=== PATIENT | female | born 1935 | race Two or more races ===

== ENCOUNTER 2016-12-02 14:33 | Emergency (ER) | payer MEDICARE, OTHER ==
[~2016-12-02] VITALS: Ht 170.2 cm; Wt 81.6 kg
[~2016-12-02 14:33] MED LIST: CEPHALEXIN500 MG ORAL
[2016-12-02] MEDS ORDERED: Fluorescein Strips ONE (14:59)
[2016-12-02] MEDS ORDERED: Tetracaine 0.5% Opth Soln LEFT EYE ONE (15:00)
--- NOTE | 2016-12-02 15:44 | Emergency Room Report ---
History of Present Illness General Chief Complaint: Eye Problems Source: Patient (ABISAI DOS SANTOS) Present Illness HPI 81 y/o female c/o FB sensation in right eye x 2 days. States she feels like there is a sensation of FB in her eye that is blocking her vision like a tree branch like figure in front of her. States she has no eye pain but would rate it 1/10 but more of an irritation. 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 There are no modifying factors and has no other physical complaints. Denies any eye discharge, vision loss, eye pain, contact lens use, PULIDO, neck pain, extremity weakness, facial droop, or remembering getting something stuck in her eye. (ABISAI DOS SANTOS) Allergies: Coded Allergies: No Known Allergies (Unverified , 05/13/16) Patient History Limited by: language barrier Past Medical History: see triage record Past Surgical History: other - cataracts Pertinent Family History: none Last Menstrual Period: na Reviewed Nursing Documentation: PMH: Agreed, PSxH: Agreed (ABISAI DOS SANTOS) Nursing Documentation-PMH Past Medical History: No History, Except For Hx Cardiac Problems: Yes - high cholesterol Hx Hypertension: Yes Hx Seizures: Yes (ABISAI DOS SANTOS) Review of Systems All Other Systems: negative except mentioned in HPI (ABISAI DOS SANTOS) Physical Exam Vital Signs Date Time Temp Pulse Resp B/P Pulse Ox O2 Delivery O2 Flow Rate FiO2 12/02/16 14:40 98.2 68 18 138/61 98 Room Air Sp02 EP Interpretation: reviewed, normal General Appearance: no apparent distress, alert, GCS 15, non-toxic Head: normocephalic, atraumatic Eyes: right eye fluoroscene uptake - foreign body has uptake in right eye, consistent with a piece of string (fabric), right eye other - IOP 12, bilateral eye EOMI, bilateral eye Fundiscopic - normal, bilateral eye PERRL, bilateral eye normal inspection ENT: normal ENT inspection Neck: normal inspection Cardiovascular #1: regular rate, rhythm Neurologic: alert, oriented x3, responsive, motor strength/tone normal, sensory intact, speech normal Psychiatric: judgement/insight normal, memory normal, mood/affect normal, no suicidal/homicidal ideation Skin: normal color, no rash, warm/dry, well hydrated (ABISAI DOS SANTOS P.AMatteo) Procedures Eye Procedure Eye Procedure : Consent: Verbal Alcaine Drops Administered: Yes Eye FB Removal: removal w/ cotton swab Eye Irrigated w/ Saline (ccs): 500 Patient Tolerated: Well Complications: None (ABISAI DOS SANTOS.AMatteo) Medical Decision Making PA Attestation Dr. Morris my supervising physician with whom patient management has been discussed with. (ABISAI DOS SANTOS) Medicare Attestation The history of Meredith Ugarte has been reviewed and management options for her have been examined and discussed by Ritesh Morris. I have personally examined and interviewed the patient. (RITESH MORRIS M.D.) Diagnostic Impression: Primary Impression: Foreign body of right eye Qualified Codes: T15.91XA - Foreign body on external eye, part unspecified, right eye, initial encounter ER Course Pt. presents to the ED c/o blurred vision Ddx considered but are not limited to glaucoma, corneal abrasion, bacterial conjunctivitis, allergic conjunctivitis, viral conjunctivitis, CVA, ophthalmic thrombosis retinal detachment Vital signs: are WNL, pt. is afebrile H&PE are most consistent with foreign body of eye ORDERS: Mendoza lamp with fluorescein, ocular pressure with karthik-pen ED INTERVENTIONS: Tetracaine 2 ggts, eye irrigation DISCHARGE: At this time pt. is stable for d/c to home. Patient states she is asymptomatic after removal of FB. Will provide printed patient care instructions , and any necessary prescriptions. Care plan and follow up instructions have been discussed with the patient prior to discharge. (ABISAI DOS SANTOS P.A.) Last Vital Signs Date Time Temp Pulse Resp B/P Pulse Ox O2 Delivery O2 Flow Rate FiO2 12/02/16 14:40 98.2 68 18 138/61 98 Room Air Status: improved Reevaluation Impression Patient has no more visual complaints. States she has normal vision after FB removal w/o any eye pain or FB sensation. (ABISAI DOS SANTOS P.A.) Disposition: HOME, SELF-CARE Condition: Improved Referrals: RASHI NY M.D. (PCP) Patient Instructions: Eye Foreign Body Additional Instructions: Advised if you think you have something in your eye, you can try to remove it. But be careful not to irritate your eye. You can also pull your upper eyelid over your lower eyelid to try to brush away the object, such as an eye lash. Do not rub or press on it. Blink a few times to see if you can remove anything that might be in your eye. If that doesnt work, rinse your eye with water once or twice. But rinsing more than a few times can make the problem worse. Patient is to go to ER right away if you have the symptoms above and your eye still hurts a lot after youve tried rinsing it or if you have any vision changes. While waiting to see the doctor, you might feel better if you sit quietly in a darkened room with your eyes closed. ABISAI DOS SANTOS Dec 02, 2016 15:44 RITESH MORRIS M.D. Dec 04, 2016 13:57
[2016-12-02 15:55] VITALS: BP 142/62
[2016-12-02 15:56] VITALS: BP 138/61
== END 2016-12-02 15:57 | disposition home or self-care (01) ==
LOC: EMR 15:09
DX: T15.91XA Foreign body on external eye, part unspecified, right eye, initial encounter (principal); X58.XXXA Exposure to other specified factors, initial encounter; Y93.9 Activity, unspecified; Y92.9 Unspecified place or not applicable; I10 Essential (primary) hypertension
CPT/HCPCS: 65205; 99283

== ENCOUNTER 2016-12-28 11:46 | Emergency (ER) | payer MEDICARE ==
[~2016-12-28] VITALS: Ht 170.2 cm; Wt 81.6 kg
[2016-12-28 12:02] VITALS: BP 149/67
[2016-12-28] MEDS ORDERED: TYLENOL EXTRA500 MG ORAL (12:12)
[2016-12-28] MEDS ORDERED: CEPHALEXIN500 MG ORAL (12:12)
[2016-12-28] MEDS ORDERED: BACITRACIN15 GM TOPIC (12:12)
[2016-12-28] MEDS ORDERED: BACTRIM DS TAB1 EAC1 ORAL (12:12)
[2016-12-28] MEDS ORDERED: Bacitracin Oint UD TOPIC ONE (12:15)
[2016-12-28 12:21] VITALS: BP 149/67
--- NOTE | 2016-12-28 12:27 | Emergency Room Report ---
History of Present Illness General Chief Complaint: Skin Rash/Abscess Source: Patient Present Illness HPI The patient is an 81-year-old female with a history of diabetes presenting for toe pain and discoloration. The patient states that she injured her toe 1 week prior. Pain is now an 8/10 dull ache it is worse with walking. Pain does not radiate. She denies any bleeding or discharge from the area. She has not tried any pain medications. She states that she is compliant with her diabetic medication. She denies any other symptoms including fever, chills, numbness or tingling, chest pain, shortness of breath Allergies: Coded Allergies: No Known Allergies (Unverified , 05/13/16) Patient History Past Medical History: see triage record Pertinent Family History: none Now: No Reviewed Nursing Documentation: PMH: Agreed, PSxH: Agreed Nursing Documentation-PMH Hx Cardiac Problems: Yes - high cholesterol Hx Hypertension: Yes Hx Seizures: Yes Review of Systems All Other Systems: negative except mentioned in HPI Physical Exam Vital Signs Date Time Temp Pulse Resp B/P Pulse Ox O2 Delivery O2 Flow Rate FiO2 12/28/16 11:54 98.1 60 15 149/67 97 Room Air Sp02 EP Interpretation: reviewed, normal General Appearance: no apparent distress, alert, GCS 15, non-toxic Head: normocephalic, atraumatic Eyes: bilateral eye PERRL, bilateral eye normal inspection ENT: hearing grossly normal, normal pharynx, no angioedema, normal voice Musculoskeletal: no calf tenderness, inflammation, swelling, tender - TTP over the plantar surface of the distal R 3rd toe Neurologic: alert, oriented x3, responsive, motor strength/tone normal, sensory intact, speech normal Psychiatric: judgement/insight normal, memory normal, mood/affect normal, no suicidal/homicidal ideation Skin: rash - There is a small superficial wound of the plantar surface of the R 3rd toe with surrounding erythema Lymphatic: no adenopathy Medical Decision Making PA Attestation Dr. Mckeon is my supervising physician. Patient management was discussed with my supervising physician Diagnostic Impression: Primary Impression: Cellulitis Qualified Codes: L03.031 - Cellulitis of right toe ER Course The patient is an 81-year-old female with a history of diabetes presenting for for pain Differential diagnoses considered but not limited to: Cellulitis, gangrene, necrosis, paronychia, felon, among others Physical exam: Afebrile. No apparent distress. Right foot: There is a less than 1 cm lesion of the plantar surface of the right third toe with surrounding erythema. No discharge or bleeding. Tender to palpation. Sensation is intact. Full active range of motion Bacitracin and sterile dressing applied. The patient will be discharged home with prescription for Keflex, Bactrim, and Tylenol. To followup with primary doctor soon as possible. ER precautions given Last Vital Signs Date Time Temp Pulse Resp B/P Pulse Ox O2 Delivery O2 Flow Rate FiO2 12/28/16 12:02 98.1 60 15 149/67 97 Room Air Status: improved Disposition: HOME, SELF-CARE Condition: Improved Scripts Bacitracin (Bacitracin) 28.4 Gm Oint...g. 1 APPLIC TOPIC THREE TIMES A DAY, #28 GM Prov: KEY EDMOND P.A. 12/28/16 Trimethoprim/Sulfamethoxazole 160/800* (BACTRIM DS TABLET*) 1 Each Tablet 1 TAB ORAL TWICE A DAY, #14 TAB Prov: KEY EDMOND P.A. 12/28/16 Cephalexin* (KEFLEX*) 500 Mg Capsule 500 MG ORAL EVERY 12 HOURS, #14 CAP 0 Refills Prov: TERZIANKEY P.A. 12/28/16 Acetaminophen* (TYLENOL EXTRA STRENGTH*) 500 Mg Tablet 500 MG ORAL Q8H Y for Prn Headache/Temp > 101, #30 TAB 0 Refills Prov: DEEPIKAANKEY P.A. 12/28/16 Patient Instructions: Diabetes and Foot Care, Cellulitis Additional Instructions: I discussed my findings with the patient. All questions and concerns have been answered. Treatment and medication compliance have been addressed. I advised the patient that they need to follow up with PMD in 3-5 days. Return to ED if symptoms worsen, new symptoms arise, or if needed for any reason. Patient verbalized understanding of discharge instructions. KEY EDMOND Dec 28, 2016 12:27
== END 2016-12-28 12:21 | disposition home or self-care (01) ==
LOC: EMR 12:05
DX: L03.031 Cellulitis of right toe (principal); I10 Essential (primary) hypertension
CPT/HCPCS: 99284

== ENCOUNTER 2018-10-30 11:37 | Inpatient (IN) | payer MEDICARE ==
[~2018-10-30] VITALS: Ht 170.2 cm; Wt 83.5 kg
[2018-10-30] VITALS (7 sets, daily range): BP systolic 163–221; BP diastolic 54–146
[~2018-10-30 11:37] MED LIST changes: +BACITRACIN15 GM TOPIC; +BACTRIM DS TAB1 EAC1 ORAL; +TYLENOL EXTRA500 MG ORAL
--- NOTE | 2018-10-30 11:46 | NUR ---
Note undone in EDM - 10/30/18 at 1153 by ALEXIS ED Nurse Note: PT WALKED IN TO ER TODAY FROM HOME. AOX4. PT C/O LEFT SHOULDER AND FACE PAIN, 02/05, AFTER FALL X THIS AM AROUND 0800. PT STATES SHE LANDED ON HER LEFT SHOULDER AND LEFT SIDE OF FACE BUT DENIES LOC. PT STATES SHE IS TAKING ASPIRIN DAILY BUT IS UNSURE OF DOSAGE. PT PRESENTS WITH SWELLING AROUND LEFT ORBIT. PT HAS LIMITED ROM OF LEFT UPPER EXTREMITY BUT SENSATION AND CIRCULATION INTACT, CAP REFILL <3 SECONDS, 5/5 MUSCLE STRENGTH OF HAND, STRONG RADIAL PULSE, AND SKIN CLEAN, DRY, AND INTACT.
--- NOTE | 2018-10-30 11:46 | NUR ---
ED Nurse Note: PT WALKED IN TO ER TODAY FROM HOME. AOX4. PT C/O LEFT SHOULDER AND FACE PAIN, 02/05, AFTER FALL X THIS AM AROUND 0800. PT STATES SHE LANDED ON HER LEFT SHOULDER AND LEFT SIDE OF FACE BUT DENIES LOC. PT STATES SHE IS TAKING ASPIRIN DAILY BUT IS UNSURE OF DOSAGE. PT DENIES DIZZINESS, NAUSEA, OR VOMITING. PT PRESENTS WITH SWELLING AROUND LEFT ORBIT. PT HAS LIMITED ROM OF LEFT UPPER EXTREMITY BUT SENSATION AND CIRCULATION INTACT, CAP REFILL <3 SECONDS, 5/5 MUSCLE STRENGTH OF HAND, STRONG RADIAL PULSE, AND SKIN CLEAN, DRY, AND INTACT.
--- NOTE | 2018-10-30 11:58 | NUR ---
ED Nurse Note: RADIOLOGY CALLED FOR CT.
--- NOTE | 2018-10-30 12:08 | NUR ---
ED Nurse Note: PT TO CT VIA CHERRY.
[2018-10-30 12:17] LABS: BASOPHILS % (AUTO) 0.6 % (0.0-2.0); EOSINOPHILS % (AUTO) 1.7 % (0.0-3.0); HEMATOCRIT 29.8 % (37.0-47.0); HEMOGLOBIN 9.7 G/DL (12.0-16.0); LYMPHOCYTES % (AUTO) 12.4 % (20.0-45.0); MEAN CORPUSCULAR VOLUME 92 FL (80-99); MONOCYTES % (AUTO) 3.8 % (1.0-10.0); NEUTROPHILS % (AUTO) 81.5 % (45.0-75.0); PLATELET COUNT 247 K/UL (150-450); RED BLOOD COUNT 3.25 M/UL (4.20-5.40); RED CELL DISTRIBUTION WIDTH 11.4 % (11.6-14.8); WHITE BLOOD COUNT 8.4 K/UL (4.8-10.8)
--- NOTE | 2018-10-30 12:24 | NUR ---
ED Nurse Note: PT BACK FROM CT VIA [facility]ERR[facility].
[2018-10-30 12:27] LABS: ANION GAP 7 mmol/L (5-15); BLOOD UREA NITROGEN 50 mg/dL (7-18); CARBON DIOXIDE 28 MMOL/L (21-32); CHLORIDE 104 MMOL/L (98-107); CREATININE 2.8 MG/DL (0.55-1.30); POTASSIUM 4.9 MMOL/L (3.5-5.1); SODIUM 139 MMOL/L (136-145)
--- NOTE | 2018-10-30 12:28 | Diagnostic Imaging Report ---
ADDENDUM - Added by Devante Raphael M.D. on 10/30/2018 12:30 PM (-07:00) INDICATION: Trauma TECHNIQUE: Multiple, contiguous 2.5 mm axial cuts of the brain are obtained from the posterior fossa to the cranial vault. Sagittal and coronal reformatted images provided. No IV contrast is administered. One or more of the following dose reduction techniques were used: automated exposure control, adjustment of the mA and/or kV according to patient size, use of iterative reconstruction technique. COMPARISON: None FINDINGS: No intracranial hemorrhage, abnormal intra- or extra-axial collections or parenchymal lesions are seen. There are involutional changes with prominence of the sulci, basal cisterns and ventricles. Scattered white matter hypoattenuations are present, likely from small vessel disease. The vargas-white differentiation is preserved. No evidence of mass effect, midline shift, or edema. The osseous structures are unremarkable. The visualized portions of the paranasal sinuses are clear. Left periorbital soft tissue swelling. IMPRESSION: 1. No acute intracranial process. 2. Involutional changes with small vessel disease. 3. Left periorbital soft tissue swelling. CTDI: 70.38 mGy DLP: 1344.19 mGycm INDICATION: Trauma TECHNIQUE: Multiple, contiguous 2.5 mm axial cuts of the brain are obtained from the posterior fossa to the cranial vault. Sagittal and coronal reformatted images provided. No IV contrast is administered. One or more of the following dose reduction techniques were used: automated exposure control, adjustment of the mA and/or kV according to patient size, use of iterative reconstruction technique. COMPARISON: None FINDINGS: No intracranial hemorrhage, abnormal intra- or extra-axial collections or parenchymal lesions are seen. There are involutional changes with prominence of the sulci, basal cisterns and ventricles. Scattered white matter hypoattenuations are present, likely from small vessel disease. The vargas-white differentiation is preserved. No evidence of mass effect, midline shift, or edema. The osseous structures are unremarkable. The visualized portions of the paranasal sinuses are clear.
[2018-10-30 12:41] LABS: ALANINE AMINOTRANSFERASE 18 U/L (12-78); ALBUMIN 2.7 G/DL (3.4-5.0); ALBUMIN/GLOBULIN RATIO 0.6 (1.0-2.7); ALKALINE PHOSPHATASE 148 U/L (46-116); ASPARTATE AMINO TRANSFERASE 16 U/L (15-37); BILIRUBIN,TOTAL 0.2 MG/DL (0.2-1.0); CREATINE KINASE 141 U/L (26-308)
--- NOTE | 2018-10-30 12:42 | Diagnostic Imaging Report ---
INDICATION: Trauma TECHNIQUE: Multiple, contiguous 2.5 mm axial cuts of the paranasal sinuses are obtained. Sagittal and coronal reformatted images are provided. No IV contrast is administered. COMPARISON: None FINDINGS: Fracture of the left orbital floor with 3-4 mm of depression. Left periorbital soft tissue swelling. Left premaxillary soft tissue swelling. The ethmoid, sphenoid and frontal sinuses are clear bilaterally. There is no mucoperiosteal thickening or air-fluid levels. The osteomeatal units are well aerated bilaterally. The turbinates are normal. The nasal septum is midline. No bony erosions are seen. Blood is seen within the left maxillary sinus. Atherosclerotic vascular disease. Status post bilateral lens surgery. IMPRESSION: 1. Fracture of the left orbital floor with 3-4 mm of depression. Left periorbital soft tissue swelling. Left premaxillary soft tissue swelling. 2. Blood is seen within the left maxillary sinus. CTDI: 28.19 mGy DLP: 570.88 mGycm
--- NOTE | 2018-10-30 12:45 | NUR ---
ED Nurse Note: PT'S BP REMAINS ELEVATED. DR DICKSON NOTIFIED.
--- NOTE | 2018-10-30 13:54 | Diagnostic Imaging Report ---
INDICATION: Chest pain COMPARISON: Chest x-ray dated 05/13/16 FINDINGS: Single frontal view demonstrates a prominent heart size. Left chest wall pacemaker leads in place. Aortic stent atherosclerotic vascular disease. The lungs are clear. No pleural effusions. The visualized osseous structures are within normal limits. IMPRESSION: Prominent cardiac size with left chest wall pacemaker. Aortic stent. Lungs are clear.
--- NOTE | 2018-10-30 13:54 | Emergency Room Report ---
History of Present Illness General Chief Complaint: Multiple Trauma/Fall Source: Patient, Family Member, Medical Record (Pat Sy DO) Present Illness HPI Patient presents with reports of fall and trauma She reports that she was walking down the stairs at [employer] had a misstep falling forward patient has pain to the left side of her face Denies any headache Has diffuse bodyaches including bilateral shoulders Denies any chest pain or shortness of breath Denies any visual change Denies any recent fevers or chills (Pat Sy DO) Allergies: Coded Allergies: No Known Allergies (Unverified , 05/13/16) Patient History Past Medical History: see triage record Pertinent Family History: none Now: No Reviewed Nursing Documentation: PMH: Agreed; PSxH: Agreed (Pat Sy DO) Nursing Documentation-PMH Past Medical History: No History, Except For Hx Cardiac Problems: Yes - high cholesterol Hx Hypertension: Yes Hx Seizures: Yes (Pat Sy DO) Review of Systems All Other Systems: negative except mentioned in HPI (Pat Sy DO) Physical Exam Vital Signs Date Time Temp Pulse Resp B/P (MAP) Pulse Ox O2 Delivery O2 Flow Rate FiO2 10/30/18 11:42 97.0 84 18 97 Room Air 10/30/18 11:50 189/54 Sp02 EP Interpretation: reviewed, normal General Appearance: no apparent distress Head: other - Facial trauma involving the left facial orbital area and upper cheek, obvious ecchymosis no obvious laceration Eyes: bilateral eye PERRL, bilateral eye EOMI, bilateral eye other - No obvious entrapment ENT: hearing grossly normal, normal pharynx, TMs + canals normal, uvula midline Neck: full range of motion, supple, no meningismus, no bony tend Respiratory: lungs clear, normal breath sounds, no rhonchi, no respiratory distress, no retraction, no accessory muscle use Cardiovascular #1: normal peripheral pulses, regular rate, rhythm, no edema, no gallop, no JVD, no murmur Gastrointestinal: normal bowel sounds, non tender, soft, no mass, no organomegaly, non-distended, no guarding, no hernia, no pulsatile mass, no rebound Genitourinary: no CVA tenderness Musculoskeletal: normal inspection Neurologic: oriented x3, responsive, 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 operator III-XII nml as tested, motor strength/ tone normal, sensory intact Psychiatric: mood/affect normal Skin: other - Ecchymosis and swelling left orbital facial area and upper cheek Lymphatic: normal inspection, no adenopathy (Pat Sy DO) Medical Decision Making Diagnostic Impression: Primary Impression: Multiple injuries due to trauma Additional Impressions: Renal insufficiency Hyperglycemia Fracture of orbital floor Qualified Codes: S02.32XA - Fracture of orbital floor, left side, initial encounter for closed fracture Hypertension Qualified Codes: I10 - Essential (primary) hypertension ER Course Patient presents initially with fairly mechanical-type description of fall however given the severity of the facial trauma and the patient's comorbidities extensive blood work was obtained revealing elevated glucose levels patient's kidney function also appears to be worsening CT head does not show any acute disease however the CT facial does reveal orbital wall fracture there is some evidence of depression On clinical exam patient does not have any signs of entrapment Patient requires further inpatient care Labs Test 10/30/18 12:05 White Blood Count 8.4 K/UL (4.8-10.8) Red Blood Count 3.25 M/UL (4.20-5.40) Hemoglobin 9.7 G/DL (12.0-16.0) Hematocrit 29.8 % (37.0-47.0) Mean Corpuscular Volume 92 FL (80-99) Mean Corpuscular Hemoglobin 30.0 PG (27.0-31.0) Mean Corpuscular Hemoglobin Concent 32.7 G/DL (32.0-36.0) Red Cell Distribution Width 11.4 % (11.6-14.8) Platelet Count 247 K/UL (150-450) Mean Platelet Volume 6.8 FL (6.5-10.1) Neutrophils (%) (Auto) 81.5 % (45.0-75.0) Lymphocytes (%) (Auto) 12.4 % (20.0-45.0) Monocytes (%) (Auto) 3.8 % (1.0-10.0) Eosinophils (%) (Auto) 1.7 % (0.0-3.0) Basophils (%) (Auto) 0.6 % (0.0-2.0) Sodium Level 139 MMOL/L (136-145) Potassium Level 4.9 MMOL/L (3.5-5.1) Chloride Level 104 MMOL/L (98-107) Carbon Dioxide Level 28 MMOL/L (21-32) Anion Gap 7 mmol/L (5-15) Blood Urea Nitrogen 50 mg/dL (7-18) Creatinine 2.8 MG/DL (0.55-1.30) Estimat Glomerular Filtration Rate mL/min (>60) Glucose Level 348 MG/DL (74-106) Calcium Level 8.0 MG/DL (8.5-10.1) Total Bilirubin 0.2 MG/DL (0.2-1.0) Aspartate Amino Transf (AST/SGOT) 16 U/L (15-37) Alanine Aminotransferase (ALT/SGPT) 18 U/L (12-78) Alkaline Phosphatase 148 U/L (46-116) Total Creatine Kinase 141 U/L (26-308) Creatine Kinase MB 2.0 NG/ML (0.0-3.6) Creatine Kinase MB Relative Index 1.4 Troponin I 0.041 ng/mL (0.000-0.056) Total Protein 7.0 G/DL (6.4-8.2) Albumin 2.7 G/DL (3.4-5.0) Globulin 4.3 g/dL Albumin/Globulin Ratio 0.6 (1.0-2.7) (Pat Sy DO) ER Course Discussed with Dr. Tang. Admit med. Antibiotics ordered. HTN continues out of control. Hydralazine repeat. Patient c/o pain. Morphine ordered. (Destin Cantrell MD) Rhythm Strip Diag. Results EP Interpretation: yes Rate: 80 Rhythm: NSR, no PVC's, no ectopy (Pat Sy DO) CT/MRI/US Diagnostic Results CT/MRI/US Diagnostic Results : Impression CT headIMPRESSION: 1. No acute intracranial process. 2. Involutional changes with small vessel disease. 3. Left periorbital soft tissue swelling. facial CTIMPRESSION: 1. Fracture of the left orbital floor with 3-4 mm of depression. Left periorbital soft tissue swelling. Left premaxillary soft tissue swelling. 2. Blood is seen within the left maxillary sinus. (Pat Sy DO) Last Vital Signs Date Time Temp Pulse Resp B/P (MAP) Pulse Ox O2 Delivery O2 Flow Rate FiO2 10/30/18 11:50 72 14 Room Air 10/30/18 11:50 97.2 189/54 99 Status: improved (Pat Sy DO) Status: improved (Destin Cantrell MD) Disposition: ADMITTED INPATIENT Condition: Serious Referrals: Destin Simon MD (PCP) Pat Sy DO October 30, 2018 13:54 Destin Cantrell MD October 30, 2018 18:47
[2018-10-30 15:56] LABS: INR 0.9 (0.9-1.1)
--- NOTE | 2018-10-30 17:00 | NUR ---
ED Nurse Note: MEAL TRAY PROVIDED FOR PT.
--- NOTE | 2018-10-30 17:45 | NUR ---
ED Nurse Note: ORLANDO OCONNELL: [phone]
[2018-10-30] MEDS ORDERED: ceFAZolin 1gm/50ml Premix 50 ML IV ONE (19:00)
--- NOTE | 2018-10-30 19:08 | NUR ---
ED Nurse Note: REPORT GIVEN TO KEVIN FREGOSO.
--- NOTE | 2018-10-30 19:20 | NUR ---
ED Nurse Note: RECIEVED REPORT TO RESUME CARE, PT IN BED AWAKE, ALERT AND ORIENTED X 4, PT IS WAITING TO GO TO FLOOR BED FOR ADMISSION, PT HAS PATENT SALINE LOCK IN RIGHT AC, PT HAS C/O PAIN IN LEFT SHOULDER AND FACE WITH SEVERE LEFT EYE BRUISING S/P FALL, PT ALSO NOTED WITH ELEVATED B/P, MD INFORMED, WILL RESUME CARE ORDRED, CARRY OUT NEW ORDERS, AND SEND TO FLOOR BED WHEN B/P DECREASES.
--- NOTE | 2018-10-30 20:15 | NUR ---
ED Nurse Note: Pt medicated for levated b/p, denies cp but does ask for pain meds for shoulder and face, pt also assisted to bedside commode, tolerated well, will continue to monitor for medication effectiveness and send to floor bd for admission.
[2018-10-30] MEDS ORDERED: Morphine Sulfate 4mg/ml Inj (IV USE ONLY) IVP ONE (20:30)
--- NOTE | 2018-10-30 21:00 | NUR ---
ED Nurse Note: PT MEDICATED FOR PAIN AND B/P, MEDS EFFECTIVE, PAIN LEVEL DECREASED TO 3/10, PT B/P=163/84, PT BEING SENT TO FLOOR BED FOR ADMISSION, BELONGING LIST COMPLETED AND SPOKE WITH PT NEPHEW AND INFORMED OF PT ADMISSION AND ROOM.
--- NOTE | 2018-10-30 21:15 | NUR ---
ED Nurse Note: placed call to floor unit for report, was informed by lan that pepe quintana will call back, she is in room busy, will wait for return call for report and admission.
--- NOTE | 2018-10-30 21:45 | NUR ---
ED Nurse Note: Placed second call for report to mariano, informed by lan now that natalie is nurse and he forgot to tell him, report given to natalie, pt in bed awake and alert, iv site patent, v/s stable, pt being taken to floor bed via gurney with er-tech and acls protocols.
--- NOTE | 2018-10-30 22:35 | NUR ---
NURSE NOTES: Received pt from ER, KEVIN Evans. Pt is awake and resting in no acute distress. Tolerating room air. nuclear monitoring technician leads applied on pt and vitals taken. Oriented pt to room and floor. IV site intact. Contacted Dr. Tang for admission orders. Bed in lowest position call light within reach.
[2018-10-31] VITALS: BP 190/61
--- NOTE | 2018-10-31 01:20 | NUR ---
NURSE NOTES: Spoke to Dr. Tang for admission orders and notified him about pt's elevated BP. Dr. Tang gave no orders and said he will see the pt in the morning.
[2018-10-31 04:00] VITALS: BP 145/76
--- NOTE | 2018-10-31 07:49 | NUR ---
HAND-OFF: Report given to KEVIN Majano. Endorsed plan of care.
--- NOTE | 2018-10-31 07:50 | NUR ---
NURSE NOTES: Received report from Gianluca BROWN. AOx4. Pt in bed awake. Welsh speaking but speaks some congolese. No c/o pain. No signs of distress noted. Bed in lowest position and locked. IV in RAC 20G SL. Will continue to monitor with plan of care.
[2018-10-31 09:03] VITALS: BP 179/76
[2018-10-31] MEDS ORDERED: Hydromorphone 0.5mg/0.5ml inj IVP PRN (09:15)
[2018-10-31 09:42] LABS: ANION GAP 3 mmol/L (5-15); BLOOD UREA NITROGEN 45 mg/dL (7-18); CALCIUM 7.7 MG/DL (8.5-10.1); CARBON DIOXIDE 31 MMOL/L (21-32); CHLORIDE 106 MMOL/L (98-107); CREATININE 2.8 MG/DL (0.55-1.30); POTASSIUM 4.5 MMOL/L (3.5-5.1); SODIUM 140 MMOL/L (136-145)
[2018-10-31] MEDS ORDERED: CARVEDILOL25 MG ORAL (11:46)
[2018-10-31] MEDS ORDERED: VITAMIN D35000 UNI2 PO (11:49)
[2018-10-31 12:00] VITALS: BP 172/70
[2018-10-31] MEDS ORDERED: PLAVIX75 MG ORAL (12:00)
[2018-10-31] MEDS ORDERED: LIPITOR80 MG ORAL (12:00)
[2018-10-31] MEDS ORDERED: ASPIR 8181 MG ORAL (12:00)
[2018-10-31] MEDS ORDERED: NIFEDIPINE ER90 M2 ORAL (12:02)
[2018-10-31] MEDS ORDERED: VITAMIN D250000 UNI1 ORAL (12:02)
[2018-10-31] MEDS ORDERED: FUROSEMIDE40 MG ORAL (12:04)
[2018-10-31] MEDS ORDERED: FAMOTIDINE20 MG ORAL (12:04)
[2018-10-31] MEDS ORDERED: TRADJENTA5 MG PO (12:07)
[2018-10-31] MEDS ORDERED: LANTUS SOL100 UNIT/1 SUBQ (12:07)
[2018-10-31] MEDS: NovoLOG Insulin Flexpen SUBQ SCH ×3 (12:29→20:47)
[2018-10-31] MEDS ORDERED: Carvedilol 25mg Tab ORAL SCH (13:35)
--- NOTE | 2018-10-31 13:52 | NUR ---
CASE MANAGEMENT: REVIEW 83Y/F PRESENTED TO ED FROM HOME CC: FALL SI: RENAL INSUFFICIENCY . S/P GROUND FALL . FRACTURE OF ORBITAL FLOOR T 97.5 HR 92 RR 15 BP 221/146 AST 98% ROOM AIR H/H 9.7/29.8 BUN 50 CR 2.8 GLUCOSE 348 IS: HYDRALAZINE IV X1 CEFAZOLIN IV X1 MORPHINE IV X1 ZOFRAN IV X1 PATIENT ADMITTED TO TELEMETRY UNIT 10/30/2018 DCP: PATIENT IS FROM HOME
--- NOTE | 2018-10-31 14:00 | NUR ---
NURSE NOTES: Dr. Tang called for home meds reconciliation to be ready for review. Home meds ordered to resume at tele but d/c plavix and ASA held due to blood in Left premaxillary on heat CT. And heparin also d/c'd with the same reason. Per pharmacist, there is no Lantus (from home meds) available, it is changed to Levemir 8U qhs but Tradjenta in not available with any other form. family will bring the home meds tomorrow. Per pharmacist, tradjenta should be ordered tomorrow when the med is available.
--- NOTE | 2018-10-31 15:30 | Consultation ---
DATE OF CONSULTATION: 10/31/2018 CONSULTING PHYSICIAN: Yogesh Cesar M.D. REFERRING PHYSICIAN: Dionicio Tang M.D. REASON FOR CONSULTATION: 1. Acute kidney injury. 2. CKD, stage 4. HISTORY OF PRESENT ILLNESS: The patient is an 83-year-old female who was admitted overnight for further evaluation and care after multiple falls and trauma. Her creatinine currently is 2.8. 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 Her creatinine was 1.6 over two years ago. Unclear of the degradation of renal function over these two years whether or not the creatinine of 2.8 was new or old. She is unclear on that issue. She was admitted for further evaluation and care due to multiple falls and severity of the facial trauma, which showed orbital wall fracture with some evidence of depression. She denies any current chest pain, shortness of breath, nausea, vomiting, or diarrhea. PAST MEDICAL HISTORY: 1. Hyperglycemia. 2. CKD stage 4. PAST SURGICAL HISTORY: Noncontributory. ALLERGIES: No known drug allergies FAMILY HISTORY: Positive for hypertension and diabetes. REVIEW OF SYSTEMS: NEUROLOGIC: The patient denies headache, change in vision, syncope, or presyncopal episodes. CARDIOVASCULAR: No current chest pain, palpitations, or angina. PULMONARY: No difficulty breathing, cough, or productive sputum. GASTROINTESTINAL/GENITOURINARY: No change in urinary or bowel habits. No nausea, vomiting, or diarrhea. ENDOCRINOLOGY: No night sweats, fevers, or chills. PHYSICAL EXAMINATION: VITAL SIGNS: Blood pressure 145/76, respiratory rate 20, pulse 74, and temperature 99.3. GENERAL: The patient is awake and alert, in no overt distress. HEENT: Extraocular muscles intact. No lymphadenopathy noted. Oropharyngeal mucosa is clear and dry. CARDIOVASCULAR: S1, S2. No rubs or gallops. PULMONARY: Clear to auscultation bilaterally. No rales, rhonchi or wheezes. ABDOMEN: Nondistended and nontender. EXTREMITIES: No edema. LABORATORY DATA: Labs dated 10/30/2018, white cell count 8.4, hemoglobin 9.7, and platelet count 247. Sodium 139, creatinine 2.8, and BUN 50. Troponin 0.041. INR is 0.9. ASSESSMENT AND PLAN: 1. Acute kidney injury on chronic kidney disease, stage 4. The patient's creatinine was 1.6 over two years ago. At this time, we will avoid any nephrotoxins and start gentle hydration. We will repeat a.m. blood work and follow renal function carefully. 2. Hypertension. We will initiate Norvasc. 3. Facial orbital fracture. Defer to ENT and primary care physician. 4. Hyperglycemia. We will start insulin sliding scale and a diabetic diet. Yogesh Cesar MD DR: MIKEY JOB#: [id number] CC:
[2018-10-31 15:54] VITALS: BP 129/55
--- NOTE | 2018-10-31 16:15 | History and Physical Report ---
DATE OF ADMISSION: 10/30/2018 HISTORY OF PRESENT ILLNESS: This is an 83 year female who reports having a mechanical fall yesterday. She states she was walking downstairs at [employer] when she missed a step and fell. She landed on her face on left side and left shoulder. She is complaining to me of facial pain, left shoulder pain, and right knee pain. She underwent imaging studies overnight, which were negative in terms of any significant fractures. In the chest, she is noted to have a permanent pacemaker. A facial bone CT was done, which showed a fracture of the left orbital floor with depression. Head CT was negative. The patient at this time states she is feeling well except for pain in the left side of the face. PAST MEDICAL HISTORY: Permanent pacemaker, hyperlipidemia, hypertension, history of seizure disorder. HOME MEDICATIONS: Include Coreg, Norvasc. REVIEW OF SYSTEMS: Denies any headaches, hematemesis, melena, or hematochezia. PHYSICAL EXAMINATION: GENERAL: Revealed an 83-year-old female. HEENT: Notable for left facial swelling plus ecchymosis under the left eye, which is unremarkable. ABDOMEN: Soft. EXTREMITIES: There is no edema. NEUROLOGIC: Nonfocal. LABORATORY DATA: Lab testing is notable for creatinine of 3.8, previously was 1.6. Glucose 348. Troponin is negative. Albumin 2.7. Hemoglobin 9.7. Coags are negative. IMPRESSION: 1. Hyperglycemia. 2. Hypertension. 3. Seizure disorder. 4. Hyperlipidemia. 5. Permanent pacemaker. 6. Status post fall. 7. Left orbital fracture. DISCUSSION: Admitted to the hospital. We will change diet to diabetic diet. Accu-Cheks and glucose monitoring. Request ENT evaluation. IV fluids per Nephrology for worsening renal failure. We will follow carefully. Dionicio Tang M.D. DR: DIOGENES JOB#: [id number] CC:
--- NOTE | 2018-10-31 19:49 | NUR ---
HAND-OFF: Report given to Gianluca BROWN. Pt remains stable.
--- NOTE | 2018-10-31 19:50 | NUR ---
NURSE NOTES: Received pt from KEVIN Guzman. Pt is awake and resting in stable condition. Tolerating room air and pt expressed she is currently not in any pain. IV site patent. Bed in lowest position and call light within reach. Will continue with plan of care.
[2018-10-31 20:00] VITALS: BP 142/107
[2018-10-31] MEDS: Carvedilol 25mg Tab ORAL SCH (20:58)
[2018-10-31] MEDS ORDERED: Heparin 5000 units/ml inj SUBQ SCH (21:00)
[2018-10-31] MEDS ORDERED: Levemir Flexpen SUBQ SCH (21:00)
[2018-10-31] MEDS ORDERED: Atorvastatin 80mg tab ORAL SCH (21:00)
[2018-11-01] VITALS: BP 144/90
[2018-11-01 04:00] VITALS: BP 126/65
[2018-11-01] MEDS: NovoLOG Insulin Flexpen SUBQ SCH ×2 (06:08→11:25)
[2018-11-01 06:26] LABS: BASOPHILS % (AUTO) 0.7 % (0.0-2.0); EOSINOPHILS % (AUTO) 1.9 % (0.0-3.0); HEMATOCRIT 26.1 % (37.0-47.0); HEMOGLOBIN 8.6 G/DL (12.0-16.0); MEAN CORPUSCULAR VOLUME 92 FL (80-99); MONOCYTES % (AUTO) 7.5 % (1.0-10.0); NEUTROPHILS % (AUTO) 74.9 % (45.0-75.0); PLATELET COUNT 242 K/UL (150-450); RED BLOOD COUNT 2.85 M/UL (4.20-5.40); RED CELL DISTRIBUTION WIDTH 11.9 % (11.6-14.8); WHITE BLOOD COUNT 9.5 K/UL (4.8-10.8)
[2018-11-01 06:44] LABS: ANION GAP 8 mmol/L (5-15); BLOOD UREA NITROGEN 47 mg/dL (7-18); CALCIUM 7.9 MG/DL (8.5-10.1); CARBON DIOXIDE 26 MMOL/L (21-32); CHLORIDE 110 MMOL/L (98-107); CHOLESTEROL 192 MG/DL (< 200); CREATININE 2.9 MG/DL (0.55-1.30); HDL CHOLESTEROL 47 MG/DL (40-60); POTASSIUM 3.5 MMOL/L (3.5-5.1); SODIUM 144 MMOL/L (136-145); TRIGLYCERIDES 143 MG/DL (30-150)
--- NOTE | 2018-11-01 07:05 | NUR ---
HAND-OFF: Report given to KEVIN Gonsalez. Endorsed plan of care.
--- NOTE | 2018-11-01 07:37 | NUR ---
NURSE NOTES: pt awake alert, no distress. no sob. no c/o pain. call light within reach.bed in lowest position locked. will monitor.
--- NOTE | 2018-11-01 07:47 | Nephrology Progress Note ---
Assessment/Plan Assessment/Plan: A/P 1) FLYNN on CKD 4- this may be her baseline 2.8-2.9 - IVFs - will need to f/u with her Community Health Counselor post DC 2) HTN- stable at goal - would avoid NAHUN-I for now 3) Post Mech Fall - facial orbital fx - nonsurgical 4) DM- insulin Subjective Date patient seen: November 01, 2018 Time patient seen: 07:44 ROS Limited/Unobtainable: No Allergies: Coded Allergies: No Known Allergies (Unverified , 05/13/16) All Systems: reviewed and negative except above Subjective Patient c/o of left shoulder pain Objective Last 24 Hour Vital Signs Date Time Temp Pulse Resp B/P (MAP) Pulse Ox O2 Delivery O2 Flow Rate FiO2 11/01/18 04:00 97.8 60 17 126/65 (85) 95 11/01/18 04:00 60 11/01/18 00:00 97.0 60 18 144/90 (108) 92 11/01/18 00:00 60 10/31/18 21:00 Room Air 10/31/18 20:58 69 136/54 10/31/18 20:00 74 10/31/18 20:00 97.1 74 18 142/107 (119) 92 10/31/18 16:47 97.9 10/31/18 16:00 67 10/31/18 15:54 97.9 64 18 129/55 (79) 95 10/31/18 13:51 70 172/70 10/31/18 13:51 70 172/70 10/31/18 12:00 98.2 70 18 172/70 (104) 95 10/31/18 12:00 77 10/31/18 09:40 104 179/76 10/31/18 09:40 104 179/76 10/31/18 09:03 99.5 104 18 179/76 (110) 95 10/31/18 09:00 Room Air 10/31/18 08:00 73 Intake and Output 10/31/18 11/01/18 19:00 07:00 Intake Total 360 ml Output Total 450 ml 0 ml Balance -90 ml 0 ml Intake Oral 360 ml Output Urine Total 450 ml 0 ml # Voids 1 Laboratory Tests 10/31/18 09:20: Sodium Level 140, Potassium Level 4.5, Chloride Level 106, Carbon Dioxide Level 31, Anion Gap 3L, Blood Urea Nitrogen 45H, Creatinine 2.8H, Estimat Glomerular Filtration Rate , Glucose Level 301H, Calcium Level 7.7L 11/01/18 05:20: Sodium Level 144, Potassium Level 3.5, Chloride Level 110H, Carbon Dioxide Level 26, Anion Gap 8, Blood Urea Nitrogen 47H, Creatinine 2.9H, Estimat Glomerular Filtration Rate , Glucose Level 94#, Calcium Level 7.9L, White Blood Count 9.5, Red Blood Count 2.85L, Hemoglobin 8.6L, Hematocrit 26.1L, Mean Corpuscular Volume 92, Mean Corpuscular Hemoglobin 30.1, Mean Corpuscular Hemoglobin Concent 32.9, Red Cell Distribution Width 11.9, Platelet Count 242, Mean Platelet Volume 6.8, Neutrophils (%) (Auto) 74.9, Lymphocytes (%) (Auto) 15.0L, Monocytes (%) (Auto) 7.5, Eosinophils (%) (Auto) 1.9, Basophils (%) (Auto ) 0.7, Hemoglobin A1c 9.3H, Triglycerides Level 143, Cholesterol Level 192, LDL Cholesterol 122H, HDL Cholesterol 47, Cholesterol/HDL Ratio 4.1 Height (Feet): 5 Height (Inches): 7.00 Weight (Pounds): 184 General Appearance: no apparent distress, alert EENT: normal ENT inspection Neck: normal alignment, supple Cardiovascular: normal rate, regular rhythm Respiratory/Chest: lungs clear, normal breath sounds Abdomen: non tender, soft Edema: no edema noted Arm (L), no edema noted Arm (R), no edema noted Leg (L), no edema noted Leg (R), no edema noted Pedal (L), no edema noted Pedal (R), no edema noted Generalized Yogesh Cesar MD November 01, 2018 07:47
[2018-11-01 07:49] VITALS: BP 150/70
--- NOTE | 2018-11-01 08:18 | NUR ---
NURSE NOTES: pt seen and examined by Dr Fermin per art model nurse report, pt family to bring keeley , relayed to Dr Tang re in person per md ok to continue, also received an order to stop ivf. order entered and carried out.
[2018-11-01] MEDS: Carvedilol 25mg Tab ORAL SCH (08:20)
--- NOTE | 2018-11-01 08:20 | Pulmonology Progress Note ---
Assessment/Plan Assessment/Plan IMPRESSION: 1. Hyperglycemia. 2. Hypertension. 3. Seizure disorder. 4. Hyperlipidemia. 5. Permanent pacemaker. 6. Status post fall. 7. Left orbital fracture. DISCUSSION: Admitted to the hospital. I will change diet to diabetic diet. Accu-Cheks and glucose monitoring. Noted ENT evaluation. Will dc IV fluids DC planning Subjective Interval Events: No new events; seen by ENT Constitutional: Reports: no symptoms HEENT: Repors: no symptoms Respiratory: Reports: no symptoms Cardiovascular: Reports: no symptoms Gastrointestinal/Abdominal: Reports: no symptoms Genitourinary: Reports: no symptoms Allergies: Coded Allergies: No Known Allergies (Unverified , 05/13/16) Objective Last 24 Hour Vital Signs Date Time Temp Pulse Resp B/P (MAP) Pulse Ox O2 Delivery O2 Flow Rate FiO2 11/01/18 07:58 Room Air 11/01/18 07:49 97.8 80 17 150/70 (96) 95 11/01/18 04:00 97.8 60 17 126/65 (85) 95 11/01/18 04:00 60 11/01/18 00:00 97.0 60 18 144/90 (108) 92 11/01/18 00:00 60 10/31/18 21:00 Room Air 10/31/18 20:58 69 136/54 10/31/18 20:00 74 10/31/18 20:00 97.1 74 18 142/107 (119) 92 10/31/18 16:47 97.9 10/31/18 16:00 67 10/31/18 15:54 97.9 64 18 129/55 (79) 95 10/31/18 13:51 70 172/70 10/31/18 13:51 70 172/70 10/31/18 12:00 98.2 70 18 172/70 (104) 95 10/31/18 12:00 77 10/31/18 09:40 104 179/76 10/31/18 09:40 104 179/76 10/31/18 09:03 99.5 104 18 179/76 (110) 95 10/31/18 09:00 Room Air Intake and Output 10/31/18 11/01/18 19:00 07:00 Intake Total 360 ml Output Total 450 ml 0 ml Balance -90 ml 0 ml Intake Oral 360 ml Output Urine Total 450 ml 0 ml # Voids 1 General Appearance: no acute distress HEENT: normocephalic Respiratory/Chest: chest wall non-tender Cardiovascular: normal peripheral pulses, normal rate Abdomen: normal bowel sounds, soft, non tender Laboratory Tests 10/31/18 09:20: Sodium Level 140, Potassium Level 4.5, Chloride Level 106, Carbon Dioxide Level 31, Anion Gap 3L, Blood Urea Nitrogen 45H, Creatinine 2.8H, Estimat Glomerular Filtration Rate , Glucose Level 301H, Calcium Level 7.7L 11/01/18 05:20: Sodium Level 144, Potassium Level 3.5, Chloride Level 110H, Carbon Dioxide Level 26, Anion Gap 8, Blood Urea Nitrogen 47H, Creatinine 2.9H, Estimat Glomerular Filtration Rate , Glucose Level 94#, Calcium Level 7.9L, White Blood Count 9.5, Red Blood Count 2.85L, Hemoglobin 8.6L, Hematocrit 26.1L, Mean Corpuscular Volume 92, Mean Corpuscular Hemoglobin 30.1, Mean Corpuscular Hemoglobin Concent 32.9, Red Cell Distribution Width 11.9, Platelet Count 242, Mean Platelet Volume 6.8, Neutrophils (%) (Auto) 74.9, Lymphocytes (%) (Auto) 15.0L, Monocytes (%) (Auto) 7.5, Eosinophils (%) (Auto) 1.9, Basophils (%) (Auto ) 0.7, Hemoglobin A1c 9.3H, Triglycerides Level 143, Cholesterol Level 192, LDL Cholesterol 122H, HDL Cholesterol 47, Cholesterol/HDL Ratio 4.1 Current Medications Medications (Trade) Dose Ordered Sig/Becky Route PRN Reason Start Time Stop Time Status Last Admin Dose Admin Acetaminophen (Tylenol) 650 mg Q4H PRN ORAL Mild Pain (Pain Scale 1-3) 10/31/18 09:15 11/30/18 09:14 10/31/18 16:17 Atorvastatin Calcium (Lipitor) 80 mg BEDTIME ORAL 10/31/18 21:00 11/30/18 20:59 10/31/18 20:56 Carvedilol (Coreg) 25 mg Q12HR ORAL 10/31/18 21:00 11/30/18 20:59 10/31/18 20:58 Clonidine HCl (Catapres Tab) 0.1 mg Q6H PRN ORAL For High Blood Pressure 10/31/18 13:30 11/30/18 13:29 Dextrose (Dextrose 50%) 25 ml Q30M PRN IV Hypoglycemia 10/31/18 09:15 11/30/18 09:14 Dextrose (Dextrose 50%) 50 ml Q30M PRN IV Hypoglycemia 10/31/18 09:15 11/30/18 09:14 Famotidine (Pepcid) 40 mg DAILY ORAL 10/31/18 09:15 11/30/18 09:14 10/31/18 09:40 Hydromorphone HCl (Dilaudid) 0.5 mg Q6H PRN IVP For Pain 10/31/18 09:15 11/07/18 09:14 Insulin Aspart (NovoLOG) BEFORE MEALS AND HS SUBQ 10/31/18 11:30 11/30/18 11:29 10/31/18 20:47 Insulin Detemir (Levemir) 8 units BEDTIME SUBQ 10/31/18 21:00 11/30/18 20:59 10/31/18 20:47 Nifedipine (Procardia XL) 90 mg DAILY ORAL 11/01/18 09:00 12/01/18 08:59 Sodium Chloride 1,000 ml @ 75 mls/hr [id number] IVLG 10/31/18 09:20 11/30/18 09:19 10/31/18 01:50 Vitamin D (Vitamin D) 5,000 intlu DAILY ORAL 11/01/18 09:00 12/01/18 08:59 Dionicio Tang MD November 01, 2018 08:20
--- NOTE | 2018-11-01 08:24 | Consultation ---
History of Present Illness General Date patient seen: November 01, 2018 Time patient seen: 08:22 Chief Complaint: Multiple Trauma/Fall Referring physician: Naveen Present Illness Allergies: Coded Allergies: No Known Allergies (Unverified , 05/13/16) Medication History Scheduled Aspirin* (Aspir 81*), 81 MG ORAL DAILY, (Reported) Atorvastatin (Lipitor), 80 MG ORAL BEDTIME, (Reported) Carvedilol* (Carvedilol*), 25 MG ORAL BID, (Reported) Cholecalciferol (Vitamin D3) (Vitamin D3), 5,000 UNIT PO DAILY, (Reported) Clopidogrel Bisulfate* (Plavix*), 75 MG ORAL DAILY, (Reported) Ergocalciferol (Vitamin D2)* (Vitamin D*), 50,000 UNIT ORAL ONCE A WEEK, ( Reported) Famotidine (Famotidine), 20 MG ORAL DAILY, (Reported) Furosemide* (Lasix*), 40 MG ORAL DAILY, (Reported) Insulin Glargine (Lantus), 8 SUBQ BEDTIME, (Reported) Linagliptin (Tradjenta), 5 MG PO DAILY, (Reported) Nifedipine Er* (Nifedipine Er*), 90 MG ORAL DAILY, (Reported) Scheduled PRN Acetaminophen* (Tylenol Extra Strength*), 500 MG ORAL Q8H PRN for Prn Headache/ Temp > 101 Discontinued Medications Bacitracin (Bacitracin), 1 APPLIC TOPIC THREE TIMES A DAY Discontinued Reason: Pt stopped taking med Cephalexin* (Keflex*), 500 MG ORAL Q8HR Discontinued Reason: Pt stopped taking med Cephalexin* (Keflex*), 500 MG ORAL EVERY 12 HOURS Discontinued Reason: Pt stopped taking med Trimethoprim/Sulfamethoxazole 160/800* (Bactrim Ds Tablet*), 1 TAB ORAL TWICE A DAY Discontinued Reason: Pt stopped taking med Patient History Healthcare decision maker N Resuscitation status Full Code Advanced Directive on File Patient History Narrative Orbital rim fracture [address] scan indicated 3-4 mm displacement orbital rim left side. Unsureif entrapment of orbital muscle. Review of Systems Eye: Reports: double vision - as of today, per her PMD was not present yesterday. Physical Exam General Appearance: mild distress HEENT: other - left mid face black and blue, tender to touch. No moveable pieces of bone/jaw or teeth. Last 24 Hour Vital Signs Date Time Temp Pulse Resp B/P (MAP) Pulse Ox O2 Delivery O2 Flow Rate FiO2 11/01/18 08:20 80 150/70 11/01/18 08:20 80 150/70 11/01/18 07:58 Room Air 11/01/18 07:49 97.8 80 17 150/70 (96) 95 11/01/18 04:00 97.8 60 17 126/65 (85) 95 11/01/18 04:00 60 11/01/18 00:00 97.0 60 18 144/90 (108) 92 11/01/18 00:00 60 10/31/18 21:00 Room Air 10/31/18 20:58 69 136/54 10/31/18 20:00 74 10/31/18 20:00 97.1 74 18 142/107 (119) 92 10/31/18 16:47 97.9 10/31/18 16:00 67 10/31/18 15:54 97.9 64 18 129/55 (79) 95 10/31/18 13:51 70 172/70 10/31/18 13:51 70 172/70 10/31/18 12:00 98.2 70 18 172/70 (104) 95 10/31/18 12:00 77 10/31/18 09:40 104 179/76 10/31/18 09:40 104 179/76 10/31/18 09:03 99.5 104 18 179/76 (110) 95 10/31/18 09:00 Room Air Intake and Output 10/31/18 11/01/18 19:00 07:00 Intake Total 360 ml Output Total 450 ml 0 ml Balance -90 ml 0 ml Intake Oral 360 ml Output Urine Total 450 ml 0 ml # Voids 1 Laboratory Tests Test 10/31/18 09:20 11/01/18 05:20 Sodium Level 140 MMOL/L (136-145) 144 MMOL/L (136-145) Potassium Level 4.5 MMOL/L (3.5-5.1) 3.5 MMOL/L (3.5-5.1) Chloride Level 106 MMOL/L (98-107) 110 MMOL/L (98-107) H Carbon Dioxide Level 31 MMOL/L (21-32) 26 MMOL/L (21-32) Anion Gap 3 mmol/L (5-15) L 8 mmol/L (5-15) Blood Urea Nitrogen 45 mg/dL (7-18) H 47 mg/dL (7-18) H Creatinine 2.8 MG/DL (0.55-1.30) H 2.9 MG/DL (0.55-1.30) H Estimat Glomerular Filtration Rate mL/min (>60) mL/min (>60) Glucose Level 301 MG/DL (74-106) H 94 MG/DL (74-106) # Calcium Level 7.7 MG/DL (8.5-10.1) L 7.9 MG/DL (8.5-10.1) L White Blood Count 9.5 K/UL (4.8-10.8) Red Blood Count 2.85 M/UL (4.20-5.40) L Hemoglobin 8.6 G/DL (12.0-16.0) L Hematocrit 26.1 % (37.0-47.0) L Mean Corpuscular Volume 92 FL (80-99) Mean Corpuscular Hemoglobin 30.1 PG (27.0-31.0) Mean Corpuscular Hemoglobin Concent 32.9 G/DL (32.0-36.0) Red Cell Distribution Width 11.9 % (11.6-14.8) Platelet Count 242 K/UL (150-450) Mean Platelet Volume 6.8 FL (6.5-10.1) Neutrophils (%) (Auto) 74.9 % (45.0-75.0) Lymphocytes (%) (Auto) 15.0 % (20.0-45.0) L Monocytes (%) (Auto) 7.5 % (1.0-10.0) Eosinophils (%) (Auto) 1.9 % (0.0-3.0) Basophils (%) (Auto) 0.7 % (0.0-2.0) Hemoglobin A1c 9.3 % (4.3-6.0) H Triglycerides Level 143 MG/DL (30-150) Cholesterol Level 192 MG/DL (< 200) LDL Cholesterol 122 mg/dL (<100) H HDL Cholesterol 47 MG/DL (40-60) Cholesterol/HDL Ratio 4.1 (3.3-4.4) Height (Feet): 5 Height (Inches): 7.00 Weight (Pounds): 184 Medications Current Medications Medications (Trade) Dose Ordered Sig/Becky Route PRN Reason Start Time Stop Time Status Last Admin Dose Admin Acetaminophen (Tylenol) 650 mg Q4H PRN ORAL Mild Pain (Pain Scale 1-3) 10/31/18 09:15 11/30/18 09:14 10/31/18 16:17 Atorvastatin Calcium (Lipitor) 80 mg BEDTIME ORAL 10/31/18 21:00 11/30/18 20:59 10/31/18 20:56 Carvedilol (Coreg) 25 mg Q12HR ORAL 10/31/18 21:00 11/30/18 20:59 11/01/18 08:20 Clonidine HCl (Catapres Tab) 0.1 mg Q6H PRN ORAL For High Blood Pressure 10/31/18 13:30 11/30/18 13:29 Dextrose (Dextrose 50%) 25 ml Q30M PRN IV Hypoglycemia 10/31/18 09:15 11/30/18 09:14 Dextrose (Dextrose 50%) 50 ml Q30M PRN IV Hypoglycemia 10/31/18 09:15 11/30/18 09:14 Famotidine (Pepcid) 40 mg DAILY ORAL 10/31/18 09:15 11/30/18 09:14 11/01/18 08:20 Hydromorphone HCl (Dilaudid) 0.5 mg Q6H PRN IVP For Pain 10/31/18 09:15 11/07/18 09:14 Insulin Aspart (NovoLOG) BEFORE MEALS AND HS SUBQ 10/31/18 11:30 11/30/18 11:29 10/31/18 20:47 Insulin Detemir (Levemir) 8 units BEDTIME SUBQ 10/31/18 21:00 11/30/18 20:59 10/31/18 20:47 Nifedipine (Procardia XL) 90 mg DAILY ORAL 11/01/18 09:00 12/01/18 08:59 11/01/18 08:20 Vitamin D (Vitamin D) 5,000 intlu DAILY ORAL 11/01/18 09:00 12/01/18 08:59 11/01/18 08:20 Assessment/Plan Status: stable Assessment/Plan: Left orbital rim fracture. Per her PMD no vision issues yesterday, this AM she does have double vision issues. I suggest an Optho. consult to determine if entrapment of inferior rectus muscle or just swelling as well as any issues with her left orbit. Dr. Hodge is aware. MIPS Depression Does this Patient have Dementi: No Yovani Fermin MD November 01, 2018 08:24
--- NOTE | 2018-11-01 08:24 | NUR ---
NURSE NOTES: Dr Fermin made aware of left shoulder pain , tylenol given will monitor effectiveness, no order received (during md rounds) also per md ok to dc home continue home meds, pt able to move both extremities. no discoloration on left shoulder. Addendum: 11/01/18 at 0849 by JORDAN CACERES RN correction Dr Tang made aware of left shoulder pain, per md no need for further testing
[2018-11-01] MEDS ORDERED: Carvedilol 25mg Tab ORAL SCH (09:00)
[2018-11-01] MEDS ORDERED: Aspirin EC 81mg tab ORAL SCH (09:00)
[2018-11-01] MEDS ORDERED: Vitamin D 1000 IU Tab ORAL SCH (09:00)
--- NOTE | 2018-11-01 09:19 | NUR ---
CASE MANAGEMENT:REVIEW 11/01/18 SI: S/P FALL. 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
--- NOTE | 2018-11-01 09:28 | NUR ---
NURSE NOTES: daughter Hany aware of pt dc home today
--- NOTE | 2018-11-01 09:43 | NUR ---
*-* No Insurance information in the bar unable to send clinicals *-*
--- NOTE | 2018-11-01 09:46 | NUR ---
INSURANCE FAXED REVIEWS AND CLINICALS TO [employer]A PANDEY T: [phone] F: [phone] Addendum: 11/01/18 at 1026 by ELEUTERIO RIVAS REF#[id number]
[2018-11-01 12:11] VITALS: BP 140/70
--- NOTE | 2018-11-01 12:12 | NUR ---
NURSE NOTES: pt picked up by grisel seymour , pt left in stable condition, w all belongings including cd images from radiology. iv removed no bleeding from right forearm
--- NOTE | 2018-11-02 11:18 | Discharge Summary ---
Discharge Summary Discharge Summary _ DATE OF ADMISSION: 10/30/2018 DATE OF DISCHARGE: 11/01/2018 DISCHARGED BY: Dr. Tang REASON FOR ADMISSION: 83 years old female with past medical history of hypertension, hyperlipidemia, permanent pacemaker, seizure disorder, sustained mechanical fall a day prior to presentation to emergency department. She was walking downstairs at [employer] when she missed a step and fell. She landed on her face on the left side and left shoulder. Patient denied chest pain Patient denied headache and visual changes. No recent fever and chills. No chest pain, no shortness of breath. Upon evaluation vital signs were stable. CT of the head revealed no acute intracranial pathology. CT of the facial bones demonstrated fracture of the left orbital floor with 3 to 4 mm of depression. Left periorbital soft tissue swelling. Left premaxillary soft tissue swelling. Chest x-ray revealed no acute cardiopulmonary pathology. Laboratory work-up revealed no leukocytosis, hemoglobin 9.7, hematocrit 29.8. BUN 50, creatinine 2.8. Glucose 348 9. Troponin - 0.041 EKG reveals sinus rhythm no acute ischemic changes. Patient admitted for further management. CONSULTANTS: job specification writer Dr.De Mata ENT specialist Dr. Fermin [facility]: Patient admitted to telemetry floor. Nephrology and ENT specialist consult were requested. Patient started on IV hydration. Renal parameters and electrolytes were closely monitored, electrolytes further corrected as needed , and nephrotoxins were avoided. Creatinine remained without change. Per job specification writer , patient had acute kidney injury on chronic kidney disease stage IV with possible baseline creatinine 2.8-2.9. Ethylbenzene Oxidizer recommended to follow-up with job specification writer as outpatient and avoid nephrotoxic's. ENT seen and evaluated patient. No vision changes, no double vision. ENT recommended outpatient follow-up with ophthalmology Seizure precaution maintained. No evidence of seizure activity while in the hospital. Fall precaution maintained. Patient was stable for discharge home outpatient follow-up with a primary care provider and lan manager Blood pressure was managed with nifedipine and Coreg and remained stable. Clonidine was on board as needed. Statin was continued. Lipid panel revealed elevated LDL. Patient was counseled on low-fat low-cholesterol diabetic diet. Blood sugar was managed with long-acting insulin and sliding scale of insulin as needed. Blood sugar stabilized. At home continue with current oral anti-glycemic medication regimen. Stressed importance of compliance with medication regimen Pain management was addressed. GI prophylaxis provided. Pain management addressed. Bowel regimen instituted. Supportive care provided. Patient stabilized and was ready for discharge home. FINAL DIAGNOSES: Acute kidney injury on chronic kidney disease stage IV Status post mechanical fall Left orbital rim fracture Hyperglycemia associated with diabetes mellitus Hypertension Seizure disorder Hyperlipidemia Permanent pacemaker DISCHARGE MEDICATIONS: See Medication Reconciliation list. DISCHARGE INSTRUCTIONS: Patient was discharged home . Follow up with primary care provider in one week. Outpatient lan manager evaluation was recommend I have been assigned to dictate discharge summary for this account. I was not involved in the patient's management. Graciela Grace NP November 02, 2018 11:18
--- NOTE | 2018-11-03 15:28 | Cardiology Report ---
APPROVED REPORT EKG Measurement Heart [id number] Normal sinus rhythm with sinus arrhythmia Left axis deviation Right bundle branch block Abnormal ECG
== END 2018-11-01 12:14 | disposition home or self-care (01) | DRG 125 ==
LOC: EMR 13:23 → 2E 17:20 → EDBEDREQ 17:59
DX: S02.32XA Fracture of orbital floor, left side, initial encounter for closed fracture (principal); N18.4 Chronic kidney disease, stage 4 (severe); N17.9 Acute kidney failure, unspecified; W10.8XXA Fall (on) (from) other stairs and steps, initial encounter; Y92.22 Religious institution as the place of occurrence of the external cause; I12.9 Hypertensive chronic kidney disease with stage 1 through stage 4 chronic kidney disease, or unspecified chronic kidney disease; Z95.0 Presence of cardiac pacemaker; E78.5 Hyperlipidemia, unspecified; R73.9 Hyperglycemia, unspecified; E11.22 Type 2 diabetes mellitus with diabetic chronic kidney disease; E11.65 Type 2 diabetes mellitus with hyperglycemia; M25.512 Pain in left shoulder; M25.562 Pain in left knee; R56.9 Unspecified convulsions
CPT/HCPCS: 36415; 70450; 70486; 71045; 80048; 80053; 80061; 82550; 82553; 82962; 83036; 84484; 85025; 85610; 85730; 93005; 96374; 96375; 96376; 99285; J1815; J2405; S5561